=== PATIENT | female | born 1935 | race Caucasian/White ===

== ENCOUNTER 2022-11-06 09:50 | Outpatient (CLI) | payer MEDICARE, OTHER, SELFPAY | END 2022-11-06 09:51 | disposition home or self-care (01) | LOC: NFLDREF 11-08 10:15 | PROVIDERS: PCP Internal Medicine; Referring Provider Internal Medicine; Visit Provider Internal Medicine | DX: I10 Essential (primary) hypertension (principal); E78.5 Hyperlipidemia, unspecified; M81.0 Age-related osteoporosis without current pathological fracture | CPT/HCPCS: 80048; 80061; 82306 ==

== ENCOUNTER 2023-03-02 13:22 | Outpatient (CLI) | payer MEDICARE, OTHER, SELFPAY ==
--- NOTE | 2023-03-02 13:40 | CRLHL7_ITS ---
For Patients: As a result of the Cures Act, medical imaging exams and procedure reports are released immediately into your electronic medical record. You may view this report before your referring provider. If you have questions, please contact your health care provider. BILATERAL SCREENING MAMMOGRAM WITH COMPUTER-AIDED DETECTION AND TOMOSYNTHESIS TECHNIQUE: CC and MLO views were obtained. These mammographic images have been obtained using full-field digital technique. These mammographic images were interpreted with the benefit of computer-aided detection. Breast Tomosynthesis was used in this interpretation. COMPARISON FILM: 06/28/21, 06/03/20, 11/06/18. FINDINGS: There are scattered areas of fibroglandular density IMPRESSION: There is no radiographic evidence for malignancy. ASSESSMENT: BI-RADS Category 1: Negative RECOMMENDATION: Routine screening mammogram in 1 year. A lay language report of this examination will be provided to the patient. Shadi Frias M.D. Diagnostic Radiologist [email or web address] Transcribed: 3:00 p.mHerbie leiva/Dictated by: Shadi Frias MD @ 03/05/2023 8:30:00 AM (Electronically Signed)
== END 2023-03-02 13:23 | disposition home or self-care (01) ==
LOC: MAMMO 13:24
PROVIDERS: PCP Internal Medicine; Visit Provider Internal Medicine
DX: Z12.31 Encounter for screening mammogram for malignant neoplasm of breast (principal)
CPT/HCPCS: 77063; 77067

== ENCOUNTER 2023-11-12 09:06 | Outpatient (CLI) | payer MEDICARE, OTHER, SELFPAY | END 2023-11-12 09:07 | disposition home or self-care (01) | LOC: NFLDREF 11-14 11:27 | PROVIDERS: PCP Internal Medicine; Referring Provider Internal Medicine; Visit Provider Internal Medicine | DX: I10 Essential (primary) hypertension (principal); E78.5 Hyperlipidemia, unspecified; M81.0 Age-related osteoporosis without current pathological fracture | CPT/HCPCS: 80048; 80061; 82306 ==

== ENCOUNTER 2024-02-01 09:44 | Outpatient (CLI) | payer MEDICARE, OTHER, SELFPAY ==
--- OUTSIDE RECORDS SUMMARY | 2024-02-01 09:48 | XMS_ITS | Clinical Summary ---
Author Organization [facility] Address [place], [place] [address] Care Team Providers Care Lehr Tender Name Role Phone Patricia Stevens MD Primary Care Provider +1- [phone] Allergies Active Allergy Reactions Criticality Noted Date Comments Penicillins Rash 05/23/2007 patient was in her 20's Medications Medication Sig Dispensed Refills Start Date End Date Status VITAMIN D 400 UNIT TAB Take 1 tablet po daily 100 1 year 11/19/2007 Active TERAZOSIN 1 MG CAPIndications:Unspeci fied essential hypertension Take 2 capsule s@ hs 180 3 05/27/2009 Active FOSAMAX 70 MG TABIndications:Osteopo rosis, unspecified Take 1 tablet po qweek 12 3 05/27/2009 Active LISINOPRIL 40 MG TABIndications:Unspeci fied essential hypertension take one tablet by mouth daily 90 3 05/27/2009 Active hydrochlorothiazide (HCTZ) 25 mg tabletIndications:Unsp ecified essential hypertension TAKE 1 TABLET DAILY 100 Each 3 07/31/2009 Active aspirin (ECOTRIN) 81 mg enteric coated tablet Daily Active multivitamin-minerals therapeutic (MULTIVITAMIN WITH IRON-MINERAL) tablet Acti ve Zinc Sulfate 66 mg tab Ac tive simvastatin (ZOCOR) 10 mg tablet 03/01/2018 Active Active Problems Problem Noted Date Diagnosed Date Psoriatic arthritis 05/26/2008 Osteoporosis, unspecified 05/26/2008 Unspecified essential hypertension 05/23/2007 Other and unspecified hyperlipidemia 05/23/2007 Resolved Problems Problem Noted Date Diagnosed Date Resolved Date Rheumatoid arthritis(714.0) 05/23/2007 05/26/2008 Immunizations Name Administration Dates Next Due AMB INFLUENZA IIV3 (AGE 65+ YRS) PF (Flu Clinic Only) 05/29/2019,05/29/2019,05/24/2017 DT (Age < 7 years) 07/04/1996 Influenza Virus, Unspecified 06/10/2017, 05/23/2016,06/02/2015,2013,05/27/2013,06/10/2012,06/08/2011,1 Influenza, High-dose Inactivated 05/23/2016,100 02/2014 Influenza, IIV3 (Age 6-35 mos) 3,06/10/2012,06/08/2011,2009 Influenza, IIV3 (Age >=3 years) 05/27/20 09,05/26/2008,06/18/2007,2005,06/12/2005,06/07/2004,06/11/2003 Influenza, Inactivated AIIV4 (Age 65+ Years) Preserv Free 05/11/2021,05/07/2020 Pneumococcal Poly,23-Valent (Pneumovax) 11/25/1999 Pneumococcal conj 13-Valent (Prevnar 13) 08/05/2015 Tdap 06/10/2012 Tdap, Unspecified 06/10/2012 Tetanus/Diptheria 09/03/2009 Family History Medical History Relation Name Comments Arthritis Father Hypertension Father Other Father Alzheimers Heart Disease Maternal Grandmother Cancer-breast Mother Heart Disease Mother Hypertension Mother Relation Name Status Comments Daughter Hunter Cormier Alive Father (Age 89) Maternal Grandmother Mother (Age 92) Son 1 Mike Alive Son 2 Chito Alive Social History Tobacco Use Types Packs/Day Years Used Date Smoking Tobacco: Never Smokeless Tobacco: Never Tobacco Cessation:Counseling Given: Yes Alcohol Use Standard Drinks/Week Comments Yes 0.8 (1 standard drink = 0.6 oz p ure alcohol) occasional Sex and Gender Information Value Date Recorded Sex Assigned at Not on file Gender Identity Not on file Sexual Orientation Not on file Obstetrics History Last Filed Vital Signs Vital Sign Reading Time Taken Comments Blood Pressure 169/73 08/28/2018 9:25 AM FURNACE BRAZER Pulse 60 08/28/2018 9:25 AM FURNACE BRAZER Temperature 36.4 ??C (97.6 ??F) 05/27/2009 1 2:16 PM CDT Respiratory Rate - - Oxygen Saturation 95% 08/28/2018 9:25 AM FURNACE BRAZER Inhaled Oxygen Concentration - - Weight 56.2 kg (123 lb 12.8 oz) 08/28/2018 9:25 AM FURNACE BRAZER Height 160 cm (5' 3) 05/26/2008 9:49 AM CDT Body Mass Index - - Plan of Treatment Upcoming Encounters Date Type Department Care Team (Late st Contact Info) Description 02/01/2024 10:00 AM CDT Ancillary Procedure [facility] at [facility] & [address] [address] Health Maintenance Due Date Last Done Comments Depression screening for age 12+ 1948 BMI (ht and wt on same day) for age 18+ 02/20/1954 Zoster (shingles) series for age 50+ (1 of 2) 02/20/1986 Medicare Wellness for age 65+ 02/20/2001 Pneumococcal series for age 65+ (3 of 3 - PPSV23 or PCV20) 08/05/2020 08/05/2015, 11/25/1999 Tetanus booster 06/10/2022 06/10/2012, 06/10/2012 COVID-19 vaccine series (3 - season) 2023 10/23/2020, 10/02/2020 Influenza for age 65+ 04/27/2024 05/11/2021 , 05/07/2020, 05/29/2019, Additional history exists DEXA/DXA scan for age 65+ Completed 06/16/2008 Tdap Completed 06/10/2012, 06/10/2012 Procedures Procedure Name Priority Date/Time Associated Diagnosis Comments XR DXA BONE DENSITY 2 SITES AXIAL Routine 06/16/2008 8:42 AM CDT Unspecified Osteoporosis from Last 3 Months or Most Recently Relevant to Health Maintenance Results * XR DEXA BONE DENSITY 2 SITES (06/16/2008 8:42 AM CDT) Anatomical Region Laterality Modality Spine, HIPS, HIPL, HIPR Other 06/16/2008 8:42 AM CDT Narrative 06/18/2008 2:07 PM CDT Please see scanned document for results of this study. Procedure Note Bianca Canales - 07/09/2008 Please see scanned document for results of this study. Gina GALARZA from Last 3 Months or Most Recently Relevant to Health Maintenance Care Teams Lehr Tender Relationship Specialty Start Date End Date Patricia Stevens MD [address] [place] [address] PCP - General Internal Medicine 05/24/17
== END 2024-02-01 09:45 | disposition home or self-care (01) ==
LOC: RAD 09:46
PROVIDERS: PCP Internal Medicine; Visit Provider Internal Medicine
DX: R01.1 Cardiac murmur, unspecified (principal); I51.7 Cardiomegaly; I34.0 Nonrheumatic mitral (valve) insufficiency; I07.1 Rheumatic tricuspid insufficiency
CPT/HCPCS: 93306

== ENCOUNTER 2024-03-04 13:32 | Outpatient (CLI) | payer MEDICARE, OTHER, SELFPAY ==
--- OUTSIDE RECORDS SUMMARY | 2024-03-04 13:34 | XMS_ITS | Clinical Summary ---
Author Organization [facility] [facility] Address [place], [place] [address] Care Team Providers Care Solid Waste Management Engineer Name Role Phone Patricia Stevens MD Primary Care Provider +1- [phone] Allergies Active Allergy Reactions Criticality Noted Date [...] Date Resolved Date Rheumatoid arthritis(714.0) 05/23/2007 05/26/2008 Encounters Date Type Department Care Team Description 02/01/2024 10:00 AM CDT Ancillary Procedure [facility] at [facility] [address] [place] [address] from Last 3 Months Immunizations Name Administration Dates Next Due AMB INFLUENZA IIV3 (AGE 65+ YRS) PF (Flu Clinic Only) 05/29/2019,05/29/2019,05/24/2017 DT (Age < 7 years) 07/04/1996 Influenza Virus, Unspecified 06/10/2017, 05/23/2016,06/02/2015,2013,05/27/2013,06/10/2012,06/08/2011,1 Influenza, High-dose Inactivated 05/23/2016,02/2014 Influenza, IIV3 (Age 6-35 mos) 3,06/10/2012,06/08/2011,2009 Influenza, [...] Mother Relation Name Status Comments Daughter Hunter Becerra Alive Father (Age 89) Maternal Grandmother Mother [...] Comments Blood Pressure 169/73 08/28/2018 9:25 AM INTERNET SALESPERSON Pulse 60 08/28/2018 9:25 AM INTERNET SALESPERSON Temperature 36.4 ??C (97.6 ??F) 05/27/2009 1 2:16 PM CDT Respiratory Rate - - Oxygen Saturation 95% 08/28/2018 9:25 AM INTERNET SALESPERSON Inhaled Oxygen Concentration - - Weight 56.2 kg (123 lb 12.8 oz) 08/28/2018 9:25 AM INTERNET SALESPERSON Height 160 cm (5' 3) 05/26/2008 9:49 AM CDT Body Mass Index - - Plan of Treatment Health Maintenance Due Date Last Done Comments [...] 06/10/2012, 06/10/2012 COVID-19 vaccine series (3 - 2022-24 season) 2023 10/23/2020, 10/02/2020 Influenza for age 65+ 04/27/2024 05/11/2021 , 05/07/2020, 05/29/2019, Additional history exists DEXA/DXA scan for age 65+ Completed 06/16/2008 Tdap Completed 06/10/2012, 06/10/2012 Procedures Procedure Name Priority Date/Time Associated Diagnosis Comments ECHO TTE COMPLETE WO CONTRAST Routine 02/01/2024 10:56 AM CDT Cardiac murmur, unspecified XR DXA BONE DENSITY 2 SITES AXIAL Routine 06/16/2008 8:42 AM CDT Unspecified Osteoporosis from Last 3 Months or Most Recently Relevant to Health Maintenance Results * ECHO TTE COMPLETE WO CONTRAST (02/01/2024 10:56 AM CDT) AORTIC VALVE MEAN PG 4 mmHg PEAK TR VELOCITY 2.8 m/s LVEDD 3.4 cm EJECTION FRACTION 60 - 65% Anatomical Region Laterality Modality Ultrasound 02/01/2024 10:1 3 AM CDT Narrative 02/01/2024 11:16 AM CDT ECHOCARDIOGRAM KATI BECERRA ? Accession#: ?? [id number] : ?1935 88 years Study Date: ?? 02/01/2024 10:13:15 AM Gender: F ?BP: ? 160/93 mmHg Height: 160.00 cm ?BSA: ?1.58 m? ? ? Weight: 56.00 kg ? Tech: ? MBF ? Referring MD: PATRICIA STEVENS Site: ? [facility] Reading Location: Mobile OP Patient Location: Outpatient. Procedure: 2D, Color Doppler and Spectral Doppler. Indication for study: Murmur Cardiac Rhythm: Irregular and with premature ventricular contractions.Study quality: Final Impressions: 1. Normal LV size, mildly increased wall thickness, normal global systolic function with an estimated EF of 60 - 65%. 2. Hypokinesis of basal inferior and inferoseptal wall segments. 3. Right ventricular cavity size is normal, global systolic RV function is normal. 4. Biatrial enlargement. 5. The mitral valve is normal, mild mitral regurgitation. 6. Mild-moderate tricuspid regurgitation. Chamber Sizes and Function Normal left ventricular size, mildly increased wall thickness, normal global systolic function with an estimated EF of 60 - 65%. Left atrial size is moderately enlarged. Right ventricular cavity size is normal, global systolic RV function is normal. RV wall thickness is normal. The right atrium is severely enlarged. Right atrial volume index is 41 ml/m? ? ?. Right atrial area is 20 cm? ? ?. The pulmonary artery is of normal size and origin. The sinus of Valsalva is normal sized. The ascending aorta is normal sized. Valves, RV Pressures and Diastolic Function The aortic valve is normal in structure and trileaflet, no stenosis and no regurgitation. The mitral valve is normal in structure, mild mitral regurgitation. Spectral Doppler shows Grade 2 pattern of LV diastolic filling. The tricuspid valve is normal in structure. Tricuspid regurgitation is mild-moderate. The tricuspid regurgitant velocity is 2.8 m/s, the estimated right ventricular systolic pressure is 32 mmHg plus right atrial pressure. The pulmonic valve is normal. Mild pulmonary regurgitation. Masses, Effusion, Shunts There is trivial pericardial effusion. The inferior vena cava is normal sized, respiratory size variation less than 50%. No left to right shunting was detected by limited color flow Doppler interrogation of the interatrial septum. MEASUREMENTS AND CALCULATIONS 2-D Measurements and LV Function: LVID (d) 3.4 cm LV FS% (2D) ?? 23 % LVID (s) 2.6 cm LVOT diameter 1.8 cm IVS (d) ??1.2 cm HR ?80 bpm LVPW (d) 1.1 cm LA Vol index ??38 ml/m2 Ao Sinus 3.2 cm RA Vol index ??41 ml/m2 Asc Ao ?? 3.6 cm RA area ? 20 cm?RV Max 4C (d) 4.1 cm Diastology: Mitral ?Tissue Doppler E Peak 0.8 m/s ??e', Septum ? 0.06 m/s A Peak 0.6 m/s ??e', Lateral ?0.05 m/s E/A ?1.3 ?E/e' Average ?? 14.25 DT ? 223 msec Aortic Valve: Vmax ? 1.2 m/s ??ASHISH (V) ?? 1.82 cm? ? ? VTI ?0.36 m ?? ASHISH (I) ?? 1.78 cm? ? ? LVOT V max 0.9 m/s ??Max PG ?6 mmHg LVOT VTI ?? 0.24 m ?? Mean PG ?? 4 mmHg SV ? 64 ml ?Dim Index 0.68 SV index ?? 41 ml/m? ? ? CO ?5.1 l/min ?CI ?3.3 l/min/m? ? ? Mitral Valve: MVA ?3.4 cm? ? ? MV P 1/2 65 msec Tricuspid Valve and estimated PA pressures: TR Vmax 2.8 m/s TAPSE 3.1 cm TR maxG 32 mmHg Pulmonic Valve: PIEDV 1.1 m/s . This study was interpreted by an [facility] accredited facility. ??Final ?? Procedure Note Reid Maria MD - 02/01/2024 ECHOCARDIOGRAM KATI BECERRA : 1935 88 years Study Date: 02/01/2024 10:13:15 AM Gender: F BP: 160/93 mmHg Height: 160.00 cm BSA: 1.58 m? ? ? Weight: 56.00 kg Tech: [facility] Referring MD: PATRICIA STEVENS Site: [facility] Reading Location: Mobile OP Patient Location: Outpatient. Procedure: 2D, Color Doppler and Spectral Doppler. Indication for study: Murmur Cardiac Rhythm: Irregular and with premature ventricularcontractions.Study quality: Final Impressions: 1. Normal LV size, mildly increased wall thickness, normal globalsystolic function with an estimated EF of 60 - 65%. 2. Hypokinesis of basal inferior and inferoseptal wall segments. 3. Right ventricular cavity size is normal, global systolic RV functionis normal. 4. Biatrial enlargement. 5. The mitral valve is normal, mild mitral regurgitation. 6. Mild-moderate tricuspid regurgitation. Chamber Sizes and Function Normal left ventricular size, mildly increased wall thickness, normalglobal systolic function with an estimated EF of 60 - 65%. Left atrialsize is moderately enlarged. Right ventricular cavity size is normal,global systolic RV function is normal. RV wall thickness is normal. Theright atrium is severely enlarged. Right atrial volume index is 41 ml/m? ? ?.Right atrial area is 20 cm? ? ?. The pulmonary artery is of normal size andorigin. The sinus of Valsalva is normal sized. The ascending aorta isnormal sized. Valves, RV Pressures and Diastolic Function The aortic valve is normal in structure and trileaflet, no stenosis and noregurgitation. The mitral valve is normal in structure, mild mitralregurgitation. Spectral Doppler shows Grade 2 pattern of LV diastolicfilling. The tricuspid valve is normal in structure. Tricuspidregurgitation is mild-moderate. The tricuspid regurgitant velocity is 2.8m/s, the estimated right ventricular systolic pressure is 32 mmHg plusright atrial pressure. The pulmonic valve is normal. Mild pulmonaryregurgitation. Masses, Effusion, Shunts There is trivial pericardial effusion. The inferior vena cava is normalsized, respiratory size variation less than 50%. No left to right shuntingwas detected by limited color flow Doppler interrogation of theinteratrial septum. MEASUREMENTS AND CALCULATIONS 2-D Measurements and LV Function: LVID (d) 3.4 cm LV FS% (2D) 23 % LVID (s) 2.6 cm LVOT diameter 1.8 cm IVS (d) 1.2 cm HR 80 bpm LVPW (d) 1.1 cm LA Vol index 38 ml/m2 Ao Sinus 3.2 cm RA Vol index 41 ml/m2 Asc Ao 3.6 cm RA area 20 cm? ? ? RV Max 4C (d) 4.1 cm Diastology: Mitral Tissue Doppler E Peak 0.8 m/s e', Septum 0.06 m/s A Peak 0.6 m/s e', Lateral 0.05 m/s E/A 1.3 E/e' Average 14.25 DT 223 msec Aortic Valve: Vmax 1.2 m/s ASHISH (V) 1.82 cm? ? ? VTI 0.36 m ASHISH (I) 1.78 cm? ? ? LVOT V max 0.9 m/s Max PG 6 mmHg LVOT VTI 0.24 m Mean PG 4 mmHg SV 64 ml Dim Index 0.68 SV index 41 ml/m? ? ? CO 5.1 l/min CI 3.3 l/min/m? ? ? Mitral Valve: MVA 3.4 cm? ? ? MV P 1/2 65 msec Tricuspid Valve and estimated PA pressures: TR Vmax 2.8 m/s TAPSE 3.1 cm TR maxG 32 mmHg Pulmonic Valve: PIEDV 1.1 m/s . This study was interpreted by an [facility] accredited facility. Final Patricia Stevens MD ECHO ORD * XR DEXA BONE DENSITY 2 SITES (06/16/2008 8:42 AM CDT) Anatomical Region Laterality Modality Spine, HIPS, HIPL, HIPR Other 06/16/2008 8:42 AM CDT Narrative 06/18/2008 2:07 PM CDT Please see scanned document for results of this study. Procedure Note Bianca Canales - 07/09/2008 Please see scanned document for results of this study. Gina Dolan MD DEXA from Last 3 Months or Most Recently Relevant to Health Maintenance Care Teams Solid Waste Management Engineer Relationship Specialty Start Date End Date Patricia Stevens MD [address] [place] [address] PCP - General Internal Medicine 05/24/17
--- NOTE | 2024-03-04 13:40 | CRLHL7_ITS ---
For Patients: As a result of the Century Cures Act, medical imaging exams and procedure reports are released immediately into your electronic medical record. You may view this report before your referring provider. If you have questions, please contact your health care provider. BILATERAL SCREENING MAMMOGRAM WITH COMPUTER-AIDED DETECTION AND TOMOSYNTHESIS, 03/04/24 INDICATION: 89-year-old asymptomatic female. Screening evaluation. Reported history of a remote benign biopsy of the RIGHT breast in the 1970s. Approximately 10-pound loss of weight since the last examination. TECHNIQUE: CC and MLO views were obtained. These mammographic images have been obtained using full-field digital technique. These mammographic images were interpreted with the benefit of computer aided detection. Breast tomosynthesis was used in interpretation. COMPARISON FILM: March 02, 2023. June 28, 2021. June 03, 2020. BREAST COMPOSITION: The breasts are heterogeneously dense, which may obscure small masses. FINDINGS: Within the upper outer RIGHT breast at approximately the 10 o???clock position there is a developing asymmetry approximately 5 cm from the RIGHT nipple. A spot compression view in the CC and MLO projection are recommended. Ultrasound may be required depending on the results of these additional images. Mild glandular asymmetry within the central upper LEFT breast. Nothing for malignancy on the LEFT. IMPRESSION: Questionable developing density upper outer RIGHT breast for which additional imaging is recommended. ASSESSMENT: BI-RADS Category 0: Incomplete: Need Additional Imaging Evaluation and/or Prior Mammograms for Comparison The [facility] will contact the patient for follow-up. A lay language report of this examination will be provided to the patient. Dani Aggarwal M.D. Diagnostic/Nuclear Medicine Radiologist [email or web address] Transcribed: 10:19 am DW/Dictated by: Dani Aggarwal MD @ 03/06/2024 9:56:00 AM (Electronically Signed)
== END 2024-03-04 13:33 | disposition home or self-care (01) ==
LOC: MAMMO 13:32
PROVIDERS: PCP Internal Medicine; Visit Provider Internal Medicine
DX: Z12.31 Encounter for screening mammogram for malignant neoplasm of breast (principal); R92.2 Inconclusive mammogram; N63.10 Unspecified lump in the right breast, unspecified quadrant
CPT/HCPCS: 77063; 77067

== ENCOUNTER 2024-03-17 10:24 | Outpatient (CLI) | payer MEDICARE, OTHER, SELFPAY ==
--- OUTSIDE RECORDS SUMMARY | 2024-03-17 10:28 | XMS_ITS | Clinical Summary ---
Author Organization [facility] Address [place], [place] [address] Care Team Providers Care Pondman Name Role Phone Patricia Stevens MD Primary Care Provider +1- [phone] Allergies Active Allergy Reactions Criticality Noted Date [...] Description 02/01/2024 10:00 AM CDT Ancillary Procedure [facility] at [facility] [address] [place] [address] from Last 3 Months Immunizations Name Administration [...] Comments Blood Pressure 169/73 08/28/2018 9:25 AM MANAGER OF SELECTION AND ASSESSMENT Pulse 60 08/28/2018 9:25 AM MANAGER OF SELECTION AND ASSESSMENT Temperature 36.4 ??C (97.6 ??F) 05/27/2009 1 2:16 PM CDT Respiratory Rate - - Oxygen Saturation 95% 08/28/2018 9:25 AM MANAGER OF SELECTION AND ASSESSMENT Inhaled Oxygen Concentration - - Weight 56.2 kg (123 lb 12.8 oz) 08/28/2018 9:25 AM MANAGER OF SELECTION AND ASSESSMENT Height 160 cm (5' 3) 05/26/2008 9:49 [...] CDT ECHOCARDIOGRAM KATI BECERRA ? Accession#: ?? [id number] : ?1935 88 years Study Date: ?? 02/01/2024 10:13:15 AM Gender: F ?BP: ? 160/93 mmHg Height: 160.00 cm ?BSA: ?1.58 m? ? ? Weight: 56.00 kg ? Tech: ? MBF ? Referring MD: PATRICIA STEVENS Site: ? [facility] Reading Location: Mobile OP Patient Location: Outpatient. [...] . This study was interpreted by an [facility] accredited facility. ??Final ?? Procedure Note Reid Mraia MD - 02/01/2024 ECHOCARDIOGRAM KATI BECERRA : 1935 88 years Study Date: 02/01/2024 10:13:15 AM Gender: F BP: 160/93 mmHg Height: 160.00 cm BSA: 1.58 m? ? ? Weight: 56.00 kg Tech: [facility] Referring MD: PATRICIA STEVENS Site: [facility] Reading Location: Mobile OP Patient [...] . This study was interpreted by an [facility] accredited facility. Final Patricia Stevens [...] Recently Relevant to Health Maintenance Care Teams Pondman Relationship Specialty Start Date End Date Patricia Stevens MD [address] [place] [address] PCP - General Internal Medicine 05/24/17
--- NOTE | 2024-03-17 10:45 | CRLHL7_ITS ---
For Patients: As a result of the Cures Act, medical imaging exams and procedure reports are released immediately into your electronic medical record. You may view this report before your referring provider. If you have questions, please contact your health care provider. DIGITAL DIAGNOSTIC RIGHT MAMMOGRAM USING TOMOSYNTHESIS AND COMPUTER-AIDED DETECTION RIGHT BREAST ULTRASOUND CLINICAL HISTORY: RIGHT breast mass/asymmetry. COMPARISON: 03/04/2024. TECHNIQUE: Digital RIGHT mammogram in two projections with computer-aided detection. Tomosynthesis was used in this interpretation. Real-time ultrasound imaging of RIGHT breast with imaging documentation. BREAST COMPOSITION: There are areas of scattered fibroglandular density. FINDINGS: 3D spot compression CC/MLO RIGHT breast mammogram images submitted. Decreased conspicuity of the previously noted asymmetric density. No architectural distortion. Targeted RIGHT breast ultrasound performed 11 o`clock 4 cm from the nipple. Benign simple cyst is present measuring 3 x 4 x 4 millimeters. No suspicious findings. IMPRESSION: Benign simple cyst RIGHT breast 11 o`clock 4 cm from the nipple measuring 4 millimeters. No evidence of malignancy. RECOMMENDATIONS: Annual bilateral screening mammography. Results and recommendations discussed with the patient. BI-RADS Category 2: Benign A lay language report of this examination will be provided to the patient. Dictated by Shadi Frias MD @ 03/17/2024 11:36:54 AM j/Dictated by: Shadi Frias MD @ 03/17/2024 11:36:00 AM (Electronically Signed)
--- NOTE | 2024-03-17 11:15 | CRLHL7_ITS ---
For Patients: As a result of the Cures Act, medical imaging exams and procedure reports are released immediately into your electronic medical record. You may view this report before your referring provider. If you have questions, please contact your health care provider. PLEASE SEE DIGITAL DIAGNOSTIC RIGHT MAMMOGRAM PERFORMED SAME DAY CRL:cali leiva/Dictated by: Shadi Frias MD @ 03/17/2024 11:35:00 AM (Electronically Signed)
== END 2024-03-17 10:25 | disposition home or self-care (01) ==
PROVIDERS: PCP Internal Medicine; Visit Provider Internal Medicine
DX: N63.10 Unspecified lump in the right breast, unspecified quadrant (principal); N60.01 Solitary cyst of right breast; R92.8 Other abnormal and inconclusive findings on diagnostic imaging of breast
CPT/HCPCS: 76642; 77065; G0279

== ENCOUNTER 2024-12-11 09:18 | Outpatient (CLI) | payer MEDICARE, OTHER, SELFPAY | END 2024-12-11 09:19 | disposition home or self-care (01) | LOC: NFLDREF 12-14 19:07 | PROVIDERS: PCP Internal Medicine; Referring Provider Internal Medicine; Visit Provider Internal Medicine | DX: M81.0 Age-related osteoporosis without current pathological fracture (principal); E78.5 Hyperlipidemia, unspecified; I10 Essential (primary) hypertension | CPT/HCPCS: 80048; 80061; 82306 ==

== ENCOUNTER 2025-03-18 09:59 | Outpatient (CLI) | payer MEDICARE, OTHER, SELFPAY ==
--- NOTE | 2025-03-18 10:15 | CRLHL7_ITS ---
For Patients: As a result of the Century Cures Act, medical imaging exams and procedure reports are released immediately into your electronic medical record. You may view this report before your referring provider. If you have questions, please contact your health care provider. INDICATION: BILATERAL SCREENING MAMMOGRAM, ASYMPOTMATIC 89 Y/O FEMALE COMPARISON: 03/17/2024, 03/04/2024, 03/02/2023 TECHNIQUE: Digital mammogram in CC and MLO projections including computer-aided detection (CAD) and tomosynthesis. BREAST COMPOSITION: There are scattered areas of fibroglandular density. FINDINGS: No suspicious findings. ASSESSMENT: BI-RADS 1 Negative RECOMMENDATION: Annual screening mammogram. A lay language report of this examination will be provided to the patient. Dictated by: Olive Silverman MD @ 03/19/2025 15:25:12 (Electronically Signed)
== END 2025-03-18 10:00 | disposition home or self-care (01) ==
LOC: MAMMO 09:59
PROVIDERS: PCP Internal Medicine; Visit Provider Internal Medicine
DX: Z12.31 Encounter for screening mammogram for malignant neoplasm of breast (principal)
CPT/HCPCS: 77063; 77067